=== PATIENT | female | born 1950 | race Two or more races ===

== ENCOUNTER 2018-01-01 17:49 | Observation (INO) | payer OTHER, MEDICARE ==
[~2018-01-01] VITALS: Ht 156.2 cm; Wt 54.4 kg
[2018-01-01] MEDS ORDERED: ONDANSETRON PF 4 MG/2 ML VIAL. IV ONE (18:30)
[2018-01-01] MEDS ORDERED: MORPHINE SULFATE 4 MG/ML VIAL. IV ONE ×2 (18:30→19:00)
--- NOTE | 2018-01-01 18:39 | PHYS DOC ---
Past Medical History Past Medical History: Cancer, High Cholesterol, Hypertension, Other Additional Past Medical Histor: colon CA Past Surgical History: Colectomy, Hysterectomy Alcohol Use: Heavy Additional Information: 2-3 drinks per day Drug Use: None Adult General Chief Complaint Chief Complaint: ANKLE PROBLEM HPI HPI Patient is a 67 year old female who presents with left ankle pain. Patient slipped down 3 steps approximately an hour prior to arrival. Patient noted immediate pain and deformity. Patient has not been able to ambulate. Patient reports last evening approximately 2-3 hours prior to arrival. Patient denies any numbness or tingling. Increased pain with movement. Reports the pain is severe. The pain gets better with holding still. Her was no head injury, syncope , nor other injury.[] Review of Systems Review of Systems Constitutional: Denies fever or chills [] Eyes: Denies change in visual acuity, redness, or eye pain [] HENT: Denies nasal congestion or sore throat [] Respiratory: Denies cough or shortness of breath [] Cardiovascular: No chest pain or palpitations[] GI: Denies abdominal pain, nausea, vomiting, bloody stools or diarrhea [] : Denies dysuria or hematuria [] Musculoskeletal: See history of present illness[] Integument: Denies rash or skin lesions [] Neurologic: Denies headache, focal weakness or sensory changes [] Endocrine: Denies polyuria or polydipsia [] All other systems were reviewed and found to be within normal limits, except as documented in this note. Current Medications Current Medications Current Medications Medications (Trade) Dose Ordered Sig/[facility] Start Time Stop Time Status Last Admin Dose Admin Morphine Sulfate (Morphine Sulfate) 4 mg 1X ONCE 01/01/18 19:00 01/01/18 19:01 DC 01/01/18 19:19 4 MG Ondansetron HCl (Zofran) 4 mg 1X ONCE 01/01/18 18:30 01/01/18 18:31 DC 01/01/18 18:21 4 MG Allergies Allergies Allergies Coded Allergies Type Severity Reaction Last Updated Verified iodine Allergy Unknown 01/01/18 Yes Physical Exam Physical Exam Constitutional: Well developed, well nourished, mild discomfort, non-toxic appearance. [] HENT: Normocephalic, atraumatic, bilateral external ears normal, oropharynx moist, no oral exudates, nose normal. [] Eyes: PERRLA, EOMI, conjunctiva normal, no discharge. [] Neck: Normal range of motion, no tenderness, supple, no stridor. [] Cardiovascular:Heart rate regular rhythm, no murmur [] Lungs & Thorax: Bilateral breath sounds clear to auscultation [] Abdomen: Bowel sounds normal, soft, no tenderness, no masses, no pulsatile masses. [] Skin: Warm, dry, no erythema, no rash. [] Back: No tenderness, no CVA tenderness. [] Extremities: Patient's ankle is rotated laterally. Patient is distal neurovascularly intact. There is bruising over the medial malleolus. Limited range of motion secondary to pain. There is no knee tenderness to palpation.. [ ] Neurologic: Alert and oriented X 3, normal motor function, normal sensory function, no focal deficits noted. [] Psychologic: Affect normal, judgement normal, mood normal. [] Current Patient Data Vital Signs Vital Signs Date Time Temp Pulse Resp B/P (MAP) Pulse Ox O2 Delivery O2 Flow Rate FiO2 01/01/18 19:19 18 99 Room Air 01/01/18 17:52 97.8 72 153/76 (101) 97.8 Lab Values Laboratory Tests Test 01/01/18 18:00 White Blood Count 8.3 x10^3/uL (4.0-11.0) Red Blood Count 3.63 x10^6/uL (3.50-5.40) Hemoglobin 11.9 g/dL (12.0-15.5) L Hematocrit 33.8 % (36.0-47.0) L Mean Corpuscular Volume 93 fL (79-100) Mean Corpuscular Hemoglobin 33 pg (25-35) Mean Corpuscular Hemoglobin Concent 35 g/dL (31-37) Red Cell Distribution Width 13.0 % (11.5-14.5) Platelet Count 247 x10^3/uL (140-400) Neutrophils (%) (Auto) 53 % (31-73) Lymphocytes (%) (Auto) 38 % (24-48) Monocytes (%) (Auto) 7 % (0-9) Eosinophils (%) (Auto) 1 % (0-3) Basophils (%) (Auto) 1 % (0-3) Neutrophils # (Auto) 4.4 x10^3uL (1.8-7.7) Lymphocytes # (Auto) 3.2 x10^3/uL (1.0-4.8) Monocytes # (Auto) 0.6 x10^3/uL (0.0-1.1) Eosinophils # (Auto) 0.1 x10^3/uL (0.0-0.7) Basophils # (Auto) 0.0 x10^3/uL (0.0-0.2) Prothrombin Time 11.7 SEC (11.7-14.0) Prothrombin Time INR 0.9 (0.8-1.1) Sodium Level 143 mmol/L (136-145) Potassium Level 3.0 mmol/L (3.5-5.1) L Chloride Level 105 mmol/L (98-107) Carbon Dioxide Level 24 mmol/L (21-32) Anion Gap 14 (6-14) Blood Urea Nitrogen 20 mg/dL (7-20) Creatinine 0.7 mg/dL (0.6-1.0) Estimated GFR (Cockcroft-Gault) 84.0 Glucose Level 117 mg/dL (70-99) H Calcium Level 9.1 mg/dL (8.5-10.1) Laboratory Tests 01/01/18 18:00 Laboratory Tests 01/01/18 18:00 EKG EKG [] Radiology/Procedures Radiology/Procedures X-ray of left ankle and tibia-fibula show a bimalleolar fracture[] Course & Med Decision Making Course & Med Decision Making Pertinent Labs and Imaging studies reviewed. (See chart for details) ED course: Patient arrived, was placed in bed, in tolerate exam well. Patient had IV access established and was given IV pain medication. After the return the x-rays, consultation was made with orthopedic surgery service at 1840 who is coming by to see the patient.[] Dragon Disclaimer Dragon Disclaimer This electronic medical record was generated, in whole or in part, using a voice recognition dictation system. Departure Departure Impression: Primary Impression: Bimalleolar fracture of left ankle Disposition: ADMITTED INPATIENT Admitting Physician: Other Condition: STABLE Referrals: UNKNOWN PCP NAME (PCP) Problem Qualifiers Primary Impression: Bimalleolar fracture of left ankle Encounter type: initial encounter Fracture type: closed Qualified Codes: S82.842A - Displaced bimalleolar fracture of left lower leg, initial encounter for closed fracture JULIO LAWSON DO Jan 01, 2018 18:39
[2018-01-01 18:42] LABS: BASO % 1 % (0-3); EOS # 0.1 x10^3/uL (0.0-0.7); EOS % 1 % (0-3); HEMATOCRIT 33.8 % (36.0-47.0); HEMOGLOBIN 11.9 g/dL (12.0-15.5); LYMPH # 3.2 x10^3/uL (1.0-4.8); LYMPH % 38 % (24-48); MEAN CORPUSCULAR HEMOGLOBIN 33 pg (25-35); MEAN CORPUSCULAR HGB CONC 35 g/dL (31-37); MEAN CORPUSCULAR VOLUME 93 fL (79-100); MONO # 0.6 x10^3/uL (0.0-1.1); MONO % 7 % (0-9); NEUT # 4.4 x10^3uL (1.8-7.7); NEUT % 53 % (31-73); PLATELET COUNT 247 x10^3/uL (140-400); RED BLOOD COUNT 3.63 x10^6/uL (3.50-5.40); WHITE BLOOD COUNT 8.3 x10^3/uL (4.0-11.0)
[2018-01-01 18:50] LABS: CALCIUM 9.1 mg/dL (8.5-10.1); CREATININE 0.7 mg/dL (0.6-1.0)
[2018-01-01 18:51] LABS: PROTHROMBIN TIME PATIENT 11.7 SEC (11.7-14.0)
--- NOTE | 2018-01-01 18:53 | RAD ---
PROCEDURE: PORTABLE CHEST 1V CLINICAL INDICATION: ER PATIENT. PRE OP EVALUATION. Hx HTN. NO PRIORS COMPARISON: None FINDINGS: No pneumothorax identified. Cardiac and mediastinal contours unremarkable. No pulmonary consolidation or acute airspace disease. No acute osseous abnormalities identified. IMPRESSION: No pulmonary consolidation or acute airspace disease. Electronically signed by: Pascual Greene DO (01/01/2018 6:49 PM) [facility]
--- NOTE | 2018-01-01 18:53 | RAD ---
Indication:ER PATIENT. TRAUMA FALL TODAY. PAIN IN THE LEFT ANKLE. SWELLING AND DEFORMITY. NO PRIORS TECHNIQUE: 3 views of the left ankle and 2 views of the proximal tibia and fibula COMPARISON:None FINDINGS: Mildly displaced multifragment fracture is seen of the distal fibula approximately 4.7 cm from the tip of the lateral malleolus with moderate angulation. Mildly displaced fracture is seen of the medial malleolus with extension to the ankle mortise. Ankle mortise is not widened. Moderate ankle soft tissue swelling. The proximal tibia and fibula and knee joint is intact. IMPRESSION: 1. Mildly displaced medial malleolar fracture and distal fibular fracture as described above. Electronically signed by: Pascual Greene DO (01/01/2018 6:49 PM) [facility]
[2018-01-01] MEDS ORDERED: SUCCINYLCHOLINE 200 MG/10 ML VIAL. ONE (20:09)
[2018-01-01] MEDS ORDERED: fentaNYL PF VIAL 250 MCG/5 ML VIAL ONE (20:09)
[2018-01-01] MEDS ORDERED: BUPIVACAINE 0.5% 50 ML VIAL. ONE (20:10)
[2018-01-01] MEDS: IV RINGERS,LACTATED 1000ML 1,000 ML IV SCH ×2 (20:14→21:56)
[2018-01-01] MEDS ORDERED: HYDROmorphone 2 MG/ML VIAL IV PRN (20:15)
[2018-01-01] MEDS ORDERED: ONDANSETRON PF 4 MG/2 ML VIAL. IV PRN ×2 (20:15→20:30)
[2018-01-01] MEDS ORDERED: fentaNYL PF VIAL 100 MCG/2 ML VIAL IV PRN ×3 (20:15→20:30)
[2018-01-01] MEDS ORDERED: PROCHLORPERAZINE 10 MG/2 ML VIAL. IV PRN (20:15)
[2018-01-01] MEDS ORDERED: LIDOCAINE 1% PF 2 ML VIAL. ID PRN (20:15)
[2018-01-01] MEDS: MORPHINE SULFATE 2 MG/ML VIAL. IV PRN ×2 (20:17→20:23)
[2018-01-01] MEDS ORDERED: HYDROcodone/APAP 7.5/325MG 1 TAB TABLET PO PRN (20:30)
[2018-01-01] MEDS ORDERED: MORPHINE SULFATE 4 MG/ML VIAL. IV PRN (20:30)
[2018-01-01] MEDS ORDERED: DEXTROSE 50% 25 GM / 50ML DISP.SYRIN. IV PRN (20:30)
[2018-01-01] MEDS ORDERED: POLYETHYLENE GLYCOL 3350 17 GM PACKET. PO PRN (20:30)
[2018-01-01] MEDS ORDERED: MORPHINE SULFATE 2 MG/ML VIAL. IV PRN (20:30)
[2018-01-01] MEDS ORDERED: PROPOFOL 20 ML IV ONE (21:21)
[2018-01-01] MEDS ORDERED: DEXAMETHASONE SOD PHOS 20 MG/5 ML VIAL. ONE (21:21)
[2018-01-01] MEDS ORDERED: ONDANSETRON PF 4 MG/2 ML VIAL. ONE (21:21)
[2018-01-01] MEDS ORDERED: LIDOCAINE 2% PF Vial for OR 5 ML VIAL. ONE (21:21)
[2018-01-01] MEDS ORDERED: SEVOFLURANE 61 TO 120 MINUTES. IH ONE (21:22)
[2018-01-01] MEDS ORDERED: PHENYLEPHRINE in 0.9% NACL PF 1 MG/10 ML SYRINGE. IV ONE (21:23)
--- NOTE | 2018-01-01 21:59 | PDOC4 ---
Operative Note Operative Note Date of surgery: 01/01/2018 Preoperative diagnosis: Displaced left trimalleolar ankle fracture Postoperative diagnosis: Same Operative procedure: Operative reduction internal fixation bimalleolar portion of left trimalleolar ankle fracture Surgeon: Pat Anesthesia: Gen. Estimated blood loss: 30 mL Complications: None Operative indications: Jessica is a 67-year-old female visiting family [facility] from [facility] when she missed the last 3 steps twisted her left ankle badly and was found to have a trimalleolar ankle fracture in the emergency department. I had discussed with her the necessity of fixation whether that be at home with closed reduction or here with surgical treatment and later follow-up locally for her. I had talked about risks benefits postoperative course including the possibility of nonhealing infection continued pain symptomatic hardware medical or other anesthetic complications among others. We went over the general protection rationale healing time all her questions were answered she wishes to proceed with surgical evaluation and treatment Operative text: Patient was identified procedure verified patient placed in the supine position on the operating table. After adequate amounts of general anesthesia were administered a thigh tourniquet was placed on the left lower extremity was prepped and draped in standard sterile fashion. After timeout was performed patient procedure identified and verified the lower extremity was exsanguinated by Esmarch bandage tourniquet inflated to 250 mmHg and a curvilinear incision was made centered over the medial malleolus. Subperiosteal dissection was carried out and the medial malleolar fragment was reduced anatomically with reduction forceps and a total of 240 cannulated Falguni screws were placed across the fracture site anterior screw was size 50 the posterior size 30 both achieved excellent bite and anatomic reduction of the medial malleolar fragment. Lateral incision was made and subperiosteal dissection carried out of the comminuted fibula fracture. A 8 hole distal fibular locking plate was placed and with rotational alignment plate tended to sit slightly posterior and had just a very slight overhang to maintain anatomic alignment. Shaft screw was first placed with distal locking screws then placed and nonlocking shaft screws were placed on each side of the fracture site proximally and distally. Anatomic reduction was carried out of the ankle joint mortise hardware alignment was noted to be acceptable along with all screw lengths under multiple fluoroscopic views thorough irrigation carried out normal saline solution closure accomplished with buried Vicryl suture skin closure with jennifer sterile dressings were applied consisting of a well-padded posterior splint. Toes were noted be warm pink find deflation of tourniquet she was extubated transferred to postop holding in stable condition having tolerated procedure well MERCEDEZ MALDONADO MD Jan 01, 2018 21:59
[2018-01-01 22:50] VITALS: BP 136/84
[2018-01-01 23:05] VITALS: BP 136/84
[2018-01-01 23:35] VITALS: BP 136/84
--- NOTE | 2018-01-01 23:35 | CONS ---
DATE OF CONSULTATION: 01/01/2018 REQUESTING PHYSICIAN: Dr. Ambrosio.. REASON FOR CONSULTATION: Displaced trimalleolar left ankle fracture. HISTORY OF PRESENT ILLNESS: The patient is a 67-year-old female who is from [place], [place] who is up to visit relatives for [place], and slipped down 3 steps on a stairway about an hour prior to arrival in the Emergency Department, had immediate onset of pain, deformity in her left ankle, has not been able to put weight on it or ambulate. She reports having a late lunch and last ate at 1:00 p.m. today. She has severe pain with any movement of the ankle. Denies any numbness or tingling. She denies any loss of consciousness, head injury or other extremity injury. PAST MEDICAL HISTORY: Significant for a remote history of colon cancer, which is in remission. She had a colectomy at that time. She also has hypertension, hypercholesterolemia, but otherwise healthy. PAST SURGICAL HISTORY: Significant for the colectomy for colon cancer as well as hysterectomy. ALLERGIES: She lists allergy to IODINE CONTRAST DYE. MEDICATIONS: List is reviewed. SOCIAL HISTORY: Otherwise, healthy. Ambulates independently. Lives in [place]. Denies smoking or drug use. Has about 2-3 alcoholic beverages a day. REVIEW OF SYSTEMS: As above. Negative for any loss of consciousness, neck or back pain, other joint injury, radiating pain, numbness, tingling in the extremities, focal weakness. No chest pain, shortness of breath, headache, visual changes or other constitutional symptoms. PHYSICAL EXAMINATION: VITAL SIGNS: Temperature 97.8, pulse 72, respirations 18, blood pressure 153/76, 99% saturation on room air. HEENT: Atraumatic, normocephalic. HEART: Regular rate and rhythm. LUNGS: Clear to auscultation bilaterally. ABDOMEN: Benign. EXTREMITIES: Examination of the left ankle reveals obvious deformity with lateral translation. Skin is otherwise intact. No bruising. She has some mild swelling. She is able to wiggle her toes, but with significant pain. Has obvious instability of the ankle. She has normal examination of the contralateral right ankle, bilateral hips and knees, normal alignment and stability of bilateral shoulders, elbows, wrists, as well. IMAGING: X-rays show a displaced trimalleolar fracture, left ankle. IMPRESSION: Displaced trimalleolar fracture, left ankle. TREATMENT PLAN: I went over with her treatment options. This is going to require operative reduction and fixation, whether that occurs here or home if she undergoes closed reduction and nonweightbearing until she could have that arranged on her arrival back home in [place]. I went over with her that occasionally later swelling or blistering if it occurs could delay surgery somewhat. She would rather have this done right away. I informed her of the risks of possible infection, nonhealing, nerve or blood vessel damage, medical or other anesthetic complications of surgery and the fact she had had that followup from locally later on, expected 6 weeks of nonweightbearing and I went through the rest of the typical postoperative course assuming good healing. All her questions were answered. She does wish to proceed with surgical evaluation and treatment at this time, which will occur as soon as the Operating Room staff is available to proceed. MERCEDEZ MALDONADO MD DR: ATIF/tessa JOB#: [id number] / [id number]
[2018-01-02 00:05] VITALS: BP 143/84
[2018-01-02] MEDS: oxyCODONE IR 5 MG TABLET PO PRN ×2 (00:53→08:18)
[2018-01-02 01:05] VITALS: BP 138/85
[2018-01-02] MEDS: ceFAZolin SODIUM 1 GM in IV DEXTROSE 5% 50 ML IV SCH ×3 (01:48→13:52)
[2018-01-02 02:07] VITALS: BP 129/82
[2018-01-02] MEDS: HYDROcodone/APAP 7.5/325MG 1 TAB TABLET PO PRN ×2 (05:32→11:25)
[2018-01-02] MEDS ORDERED: MAGNESIUM HYDROXIDE 2,400 MG/30 ML ORAL.SUSP. PO PRN (06:00)
[2018-01-02] MEDS ORDERED: CITA10TA4 PO (06:08)
[2018-01-02] MEDS ORDERED: CRESTOR5 MG PO (06:08)
[2018-01-02] MEDS ORDERED: VALS40TA2 PO (06:08)
[2018-01-02 07:00] VITALS: BP 137/83
--- NOTE | 2018-01-02 07:19 | EKG ---
[facility] [address] [place] [address] Test Date: 2018-01-01 Test Time: 19:14:55 Pat Name: ELAYNE CHRISTOPHER Department: Room: [facility] Gender: F Armor Officer: : 1950 Requested By: JULIO LAWSON Order Number: [id number] Reading MD: Rafiq Brown Measurements Intervals Dubois Rate: 75 P: 0 OK: 134 QRS: -15 QRSD: 84 T: 161 QT: 404 QTc: 454 Interpretive Statements SINUS RHYTHM LEFTWARD AXIS T ABNORMALITY IN ANTERIOR LEADS LATERAL LEADS Electronically Signed On 01-06-2018 10:48:59 COVER INSPECTOR by Rafiq Brown
[2018-01-02] MEDS ORDERED: SENNOSIDES/DOCUSATE 8.6/50MG TABLET. PO SCH (09:00)
[2018-01-02 11:00] VITALS: BP 149/82
--- NOTE | 2018-01-02 14:31 | DISCH ---
DISCHARGE INSTRUCTIONS Condition on Discharge Condition on Discharge: Stable Activity After Discharge Activity Instructions for Disc: Other, see below (nonweightbearing left leg) Weight Bearing Status after Di: Non weight bearing Diet after Discharge Diet after Discharge: Regular Wound Incision Care Wound/Incision Care: Ice to area for comfort, Do not change dressing Other wound/incision instructi: will need staple removal on follow-up appointment Contacting the [facility] after DC Call your doctor for: Concerns you may have Follow-Up Follow up with: orthopedics in [facility] within 2 weeks Treatment/Equipment after DC Adaptive Equipment Issued: MERCEDEZ Blackwood MD Jan 02, 2018 14:31
[2018-01-02] MEDS ORDERED: HYDR-3135 PO (14:32)
[2018-01-02] MEDS ORDERED: BISACODYL 10 MG SUPP.RECT. PR PRN (16:00)
--- NOTE | 2018-01-02 16:05 | DS ---
DATE OF DISCHARGE: 01/02/2018 PRINCIPAL DIAGNOSIS: Displaced trimalleolar left ankle fracture. PROCEDURES: Include ORIF of bimalleolar portion of left trimalleolar ankle fracture. DISPOSITION: Home with self-care. Family will be taking her home to her home town in [place], [place]. Follow up with a local orthopedist in [place], [place] within 2 weeks, nonweightbearing. Keep splint clean, dry and intact. Report any redness, drainage, fever, chills, or other problems. DISPOSITION MEDICATIONS: Include resume preoperative medications as well as hydrocodone 10/325 one p.o. q.4 hours p.r.n. pain, dispensed #60. BRIEF DESCRIPTION OF HOSPITAL COURSE: The patient was admitted after a fall at her family's home where she was visiting for [facility]. She fell down the last three steps of a stairwell, had immediate onset pain and deformity of her left ankle with a displaced left trimalleolar ankle fracture. She underwent fixation operatively, came over directly from the Emergency Department to surgery and postoperatively had good pain control, progressed through physical therapy and demonstrated safe ambulation and transfers. Pain control was satisfactory. She was discharged home to the care of her family in stable condition. MERCEDEZ MALDONADO MD DR: ATIF/tessa JOB#: [id number] / [id number]
== END 2018-01-02 15:40 | disposition home or self-care (01) ==
LOC: ER 17:49 → 4 NORTH 19:24
PROVIDERS: ADMIT Orthopaedic Surgery; ATTEND Orthopaedic Surgery
DX: S82.852A Displaced trimalleolar fracture of left lower leg, initial encounter for closed fracture (principal); I10 Essential (primary) hypertension; E78.00 Pure hypercholesterolemia, unspecified; Z90.49 Acquired absence of other specified parts of digestive tract; W10.8XXA Fall (on) (from) other stairs and steps, initial encounter; Y92.89 Other specified places as the place of occurrence of the external cause; Y93.89 Activity, other specified; Z79.899 Other long term (current) drug therapy; Z85.038 Personal history of other malignant neoplasm of large intestine; Z90.710 Acquired absence of both cervix and uterus; Z91.041 Radiographic dye allergy status
CPT/HCPCS: 27822; 36415; 71045; 73590; 73610; 76001; 80048; 85025; 85610; 93005; 96365; 96366; 96375; 96376; 97116; 97161; 99285; C1713; G0378; J0330; J0690; J0780; J1100; J2001; J2270; J2370; J2405; J2704; J3010; J3490; G0379; J7120